=== PATIENT | male | born 1965 | race Caucasian/White ===

== ENCOUNTER 2022-08-07 08:19 | Emergency (ER) | payer OTHER ==
[2022-08-07] MEDS ORDERED: Diphtheria/Tetanus Toxoids,Adult (Td) 0.5 ML SDV IM ONE (11:30)
== END 2022-08-07 11:32 | disposition home or self-care (01) ==
LOC: JD.ED 08:19
DX: S82.55XA Nondisplaced fracture of medial malleolus of left tibia, initial encounter for closed fracture (principal); F17.210 Nicotine dependence, cigarettes, uncomplicated; Z23 Encounter for immunization; V03.90XA Pedestrian on foot injured in collision with car, pick-up truck or van, unspecified whether traffic or nontraffic accident, initial encounter; Y92.410 Unspecified street and highway as the place of occurrence of the external cause
CPT/HCPCS: 735902650; 73590-50; 736102650; 73610-50; 736302650; 73630-50; 90471; 90714; 99283-25; 99284